=== PATIENT | male | born 1955 | race Caucasian/White ===

== ENCOUNTER 2020-01-30 10:25 | Emergency (ER) | payer MEDICARE, SELFPAY ==
--- NOTE | 2020-01-30 | CT_ITS ---
EXAMINATION: CT ABDOMEN AND PELVIS WITH CONTRAST CLINICAL INFORMATION: Left lower quadrant pain COMPARISON: None TECHNIQUE: Multidetector volumetric images were obtained from the superior aspect of the liver through the pubic symphysis following administration 85 mL of Omnipaque 350 intravenous contrast. Sagittal and coronal reformatted images were obtained on the technologist's workstation. Oral contrast: No This CT examination was performed using dose optimization techniques as appropriate, variously including the following: *Automated exposure control *Adjustment of mA and/or kV according to patient size (this includes techniques or standardized protocols for targeted exams where dose is matched to indication/reason for exam; i.e. extremities or head) *Use of iterative reconstruction technique DLP: 614 mGy-cm FINDINGS: LUNG BASES: Bibasilar scarring is present. No consolidations or effusions. LIVER, GALLBLADDER, AND BILIARY TREE: The liver is normal in size, shape, and attenuation. No focal hepatic lesion or biliary ductal dilatation is present. The gallbladder is unremarkable with no evidence of radiopaque gallstones, gallbladder wall thickening, or obvious pericholecystic inflammatory changes. PANCREAS: Unremarkable. SPLEEN: Unremarkable. Tiny splenule is seen. ADRENAL GLANDS: Unremarkable. KIDNEYS AND URETERS: The kidneys are normal in size, shape, and attenuation. Tiny bilateral renal cysts are present. No worrisome solid renal masses are seen. No hydronephrosis, hydroureter, or calculi seen. No perinephric stranding. BLADDER: Unremarkable. GASTROINTESTINAL TRACT: Diverticular changes present predominantly the left colon. No evidence of diverticulitis. The small and large bowel are unremarkable. The appendix is unremarkable. ABDOMINAL WALL: No significant hernia is appreciated. LYMPH NODES: Normal. VASCULAR: Minimal calcific atherosclerotic plaque present in the infrarenal aorta and iliac vessels PELVIC VISCERA: The bladder and seminal vesicles appear normal. OSSEOUS STRUCTURES: Unremarkable. IMPRESSION: 1. A cause for the patient's left lower quadrant pain has not been found. 2. Incidental note made of colonic diverticula without diverticulitis and tiny renal cysts.
--- NOTE | 2020-01-30 | CT_ITS ---
EXAMINATION: CT HEAD WITHOUT IV CONTRAST INDICATION: Lower extremity weakness. COMPARISON: None available. TECHNIQUE: Multidetector CT acquisitions of the head was obtained without IV contrast. This CT examination was performed using dose optimization techniques as appropriate, variously including the following: *Automated exposure control *Adjustment of mA and/or kV according to patient size (this includes techniques or standardized protocols for targeted exams where dose is matched to indication/reason for exam; i.e. extremities or head) *Use of iterative reconstruction technique FINDINGS: There is no intracranial hemorrhage, hydrocephalus, extra-axial surface collection, midline shift, or other herniation pattern. Nixon to white matter differentiation is diffusely maintained without evidence of an evolved acute territorial infarct. The basilar cisterns are preserved. No significant soft tissue abnormality. No acute osseous abnormality. The paranasal sinuses and the mastoid air cells are well aerated. IMPRESSION: No acute intracranial abnormality.
[2020-01-30 11:56] VITALS: BP 174/92; PULSE 77; RESP 20; TEMP 37; O2SAT 98; BMI 28.3
[2020-01-30 16:01] VITALS: BP 145/86; PULSE 73; RESP 16; TEMP 36.7; O2SAT 98
[2020-01-30 16:07] LABS: MANUAL DIFF FLAG NO
[2020-01-30 16:09] LABS: Basophils Percent Auto 0.4 % (0-2); Eosinophils Absolute Auto 0.2 X10*3/uL (0.0-0.4); Eosinophils Percent Auto 3.6 % (0-4); Hematocrit 45.6 % (42-52); Hemoglobin 14.8 g/dl (14.0-18.0); Imm Gran Abs Auto 0.01 X10*3/uL (0.00-0.03); Imm Gran Pct Auto 0.2 % (0.0-0.4); Lymphocytes Absolute Auto 1.2 X10*3/uL (1.2-4.9); Lymphocytes Percent Auto 23.3 % (20-40); Mean Corpuscular HGB Conc 32.5 g/dl (31.0-36.0); Mean Corpuscular Hemoglobin 27.2 pg (27.0-33.0); Mean Corpuscular Volume 83.7 fL (80-98); Mean Platelet Volume 11.3 fL (9.4-12.4); Monocytes Absolute Auto 0.4 X10*3/uL (0.1-1.2); Neutrophils Absolute Auto 3.4 X10*3/uL (2.0-8.3); Neutrophils Percent Auto 64.5 % (45-73); Platelet Count 188 X10*3/uL (160-400); Red Blood Count 5.45 X10*6/uL (4.60-5.80); Red Cell Distribution Width 13.3 % (11.0-16.0); White Blood Count 5.2 X10*3/uL (4.8-10.8)
[2020-01-30 16:17] LABS: Glucose Urine UA >=1000 MG/DL (NEG); Leukocyte Esterase Urine NEG (NEG); Nitrite Urine NEG (NEG); Urine Blood NEG (NEG); Urine Ketones 5 MG/DL (NEG); Urine Protein NEG (NEG-TRACE)
[2020-01-30 16:18] LABS: Appearance Urine CLEAR; Color Urine YELLOW
--- NOTE | 2020-01-30 16:31 | ED_ITS ---
HPI - Abdominal Pain General Chief Complaint: Abdominal Pain Stated Complaint: BACK PAIN Time Seen by Provider: 01/30/20 12:28 Source: patient Mode of arrival: ambulatory History of Present Illness HPI narrative: 64-year-old male with no sig PMHx c/o left-sided flank/low back pain radiating to LLQ and down LLE x4 days. Also reports LLE weakness with assoc tingling x early this morning around 6:30 a.m. Reports L back/abd pain is acute on chronic. Denies fever, chills, nausea /vomiting, diarrhea, dysuria/hematuria, CP/SOB MD elicited complaint: abdominal pain and flank pain Pertinent past history: none Onset (ago): day(s) (4) Pain Consistency: constant Severity: moderate Radiation: LLQ Related Data Allergies Allergy/AdvReac Type Severity Reaction Status Date / Time No Known Allergies Allergy Unverified 01/12/20 15:03 [No Known Allergies*] Review of Systems Review of Systems Yes all other systems are reviewed and are negative Constitutional: Reports as per HPI, Reports no additional constitutional complaints, Denies chills and Denies fever(s) Eyes: Reports as per HPI Reports system reviewed and no additional complaints, except as documented Cardiovascular: Reports as per HPI, Denies Abdominal Distension, Denies chest pain and Denies dyspnea Respiratory: Reports as per HPI, Reports no additional respiratory complaints, Denies cough and Denies dyspnea Gastrointestinal: Reports as per HPI, Reports abdominal pain, Denies diarrhea, Denies nausea and Denies vomiting Genitourinary: Denies hematuria, Denies dysuria and Reports flank pain Musculoskeletal: Reports numbness Reports Abnormal speech present, Reports numbness and Denies Sensory deficit (Neuro) Physical Exam Vital Signs and I&O and Narrative: Vital Signs and I&O: Vital Signs Temp 98.0 F 01/30/20 16:01 Pulse 73 01/30/20 16:01 Resp 16 01/30/20 16:01 BP 145/86 H 01/30/20 16:01 Pulse Ox 98 01/30/20 16:01 Intake & Output 01/29/20 01/30/20 01/30/20 18:59 06:59 18:59 Weight 97.522 kg Body Mass Index 28.3 Const: General: cooperative and healthy appearing Orientation/consciousness: patient oriented x3 HENMT: Head: Yes normal to inspection Eyes: General: appearance normal, both eyes and all related structures Chest: Chest palpation & inspection: normal inspection of the chest Resp: Effort & Inspection: normal respiratory effort, no stridor and not tac hypneic Auscultation: clear to auscultation bilaterally Cardio: Jugular venous distension: no JVD Rhythm: regular rhythm Heart sounds: S1 normal heart sound present and S2 normal heart sound present GI: Inspection: Yes normal to inspection Palpation (GI): Soft to palpation, Tenderness to palpation present (GI) in the LLQ, no guarding and Other GI palpation findings present : General: Yes no CVA tenderness Back/Spine/Pelvis: Other: +L lower back MSK ttp Back: no CVA tenderness Thoracic/Lumbar Spine: thoracic and lumbar spine normal to inspection Neuro: Other: No saddle anesthesia. General: patient oriented x3 Cranial nerves: Yes CN's II-XII intact bilaterally Cognition (Neuro): normal cognition Speech: Abnormal speech present Gait exam (Neuro): Normal gait present Motor exam (neuro): 5/5 motor strength present throughout and Abnormal motor strength present (LLE weaker than RLE) Sensory Exam: No Sensory deficit (Neuro) Course Course Course Narrative: CBC and UA wnl --[id number]-- ED care transferred to [facility] pending remaining labs and imaging MDM - Abdominal Pain MDM Narrative Medical decision making narrative: 64-year-old male with no sig PMHx c/o left- sided flank/low back pain radiating to LLQ and down LLE x4 days. Also reports LLE weakness with assoc tingling x early this morning around 6:30 a.mOn exam VSS, NAD, well appearing. +abd soft +LLQ ttp, +L low back MSK ttp no midline spinous ttp or red flag sx. +LLE weakness. Concern for renal stone vs diverticulitis vs infectious etiology vs MSK pain vs ?CVA (patient out of the window) Plan: Labs, UA, CT Head/CTAP, Reassess Differential Diagnosis Differential diagnosis: Likely abdominal pain, bowel perforation, constipation, diverticulitis, gastritis and renal colic Lab Data Result diagrams: 01/30/20 15:59 Labs: Lab Results 01/30/20 01/30/20 01/30/20 Range/Units 15:59 15:59 15:59 WBC 5.2 (4.8-10.8) X10*3/uL RBC 5.45 (4.60-5.80) X10*6/uL Hgb 14.8 (14.0-18.0) g/dl Hct 45.6 (42-52) % MCV 83.7 (80-98) fL MCH 27.2 (27.0-33.0) pg MCHC 32.5 (31.0-36.0) g/dl RDW 13.3 (11.0-16.0) % Plt Count 188 (160-400) X10*3/uL MPV 11.3 (9.4-12.4) fL Immature Gran % (Auto) 0.2 (0.0-0.4) % Neut % (Auto) 64.5 (45-73) % Lymph % (Auto) 23.3 (20-40) % [place] % (Auto) 8.0 (2-11) % Eos % (Auto) 3.6 (0-4) % Baso % (Auto) 0.4 (0-2) % Neut # (Auto) 3.4 (2.0-8.3) X10*3/uL Lymph # (Auto) 1.2 (1.2-4.9) X10*3/uL [place] # (Auto) 0.4 (0.1-1.2) X10*3/uL Eos # (Auto) 0.2 (0.0-0.4) X10*3/uL Baso # (Auto) 0.0 (0.0-0.2) X10*3/uL Abs Immat Gran (auto) 0.01 (0.00-0.03) X10*3/uL Absolute Nucleated RBC 0.000 (0.0-0.012) X10*3/uL Nucleated RBC % (auto) 0.0 (0.0-0.2) /100WBC Hold Blue Top SEE NOTE Urine Color YELLOW Urine Appearance CLEAR Urine pH 7.0 (5.0-8.0) Ur Specific [place] 1.020 (1.005-1.025) Urine Protein NEG (NEG-TRACE) MG/DL Urine Glucose (UA) >=1000 H (NEG) MG/DL Urine Ketones 5 (NEG) MG/DL Urine Blood NEG (NEG) Urine Nitrite NEG (NEG) Ur Leukocyte Esterase NEG (NEG) Urine RBC 0 (0) /HPF Urine WBC 0 (0-4) /HPF Ur Squamous Epith Cells TRACE /LPF Urine Bacteria NONE /LPF Discharge Plan Discharge Clinical Impression: Abdominal pain, Weakness PMFSH Past Medical History Attestation statement: The following information was validated with the patient. Medical History Arthritis Blind Diabetic acidosis, type II Hernia High cholesterol HTN (hypertension) Hx of cataract Social History Social History Alcohol intake: current Alcohol intake frequency: a few times a month Smoking Status: Never smoker Use of substances other than those prescribed or required for medical reasons: No Advance Directives: No Advance Directives Information Provided: Yes
[2020-01-30 16:32] LABS: RBC Urine 0 /HPF (0); Squamous Epithelial Cell Urine TRACE /LPF; WBC Urine 0 /HPF (0-4)
[2020-01-30 17:19] VITALS: BP 146/88; PULSE 71; RESP 16; TEMP 37.1; O2SAT 98
[2020-01-30 17:49] LABS: Alanine Aminotransferase 26 U/L (0-40); Albumin Level 4.2 g/dL (3.5-5.0); Alkaline Phosphatase 74 U/L (39-117); Aspartate Amino Transferase 18 U/L (5-37); Bilirubin Direct < 0.2 mg/dL (0.0-0.5); Bilirubin Total 0.3 mg/dL (0.0-1.0); Lipase 18 U/L (8-78); Total Protein 6.7 g/dL (6.5-8.0)
[2020-01-30 17:54] LABS: B Type Natriuretic Peptide 18 pg/mL (<100)
[2020-01-30 18:00] VITALS: BP 159/87; PULSE 68; RESP 16; TEMP 36.7; O2SAT 98
[2020-01-30 19:01] LABS: Anion Gap 14 (12-20); Blood Urea Nitrogen 10 mg/dL (9-16); Calcium 9.1 mg/dL (8.4-10.2); Carbon Dioxide 22 mmol/L (22-29); Chloride 103 mmol/L (96-108); Creatinine Clr Calc Pharmacy 111.9; Estimated Glomerular Filt Rate > 60; Glucose Random 254 mg/dL (60-115); Potassium 4.2 mmol/l (3.3-5.1); Sodium 135 mmol/L (135-145)
[2020-01-30] MEDS: iohexoL 350 MG/ML 100 ML INFUS..BTL IV (19:39)
== END 2020-01-30 20:49 | disposition home or self-care (01) ==
PROVIDERS: Physician Assistant; Physician Assistant Medical; Emergency Provider Internal Medicine; PCP Internal Medicine
DX: R10.32 Left lower quadrant pain (principal); R53.1 Weakness; I10 Essential (primary) hypertension; Z79.899 Other long term (current) drug therapy
CPT/HCPCS: 36415; 70450; 74177; 80048; 80076; 81001; 83690; 83735; 83880; 85025; 99284

== ENCOUNTER 2022-02-19 07:32 | Emergency (ER) | payer MEDICARE, SELFPAY ==
--- NOTE | ~2022-02-19 | CT_ITS ---
EXAMINATION: CT HEAD WITHOUT CONTRAST CLINICAL INFORMATION: Dizziness. COMPARISON: Head CT scan dated 01/30/2020. TECHNIQUE: Contiguous axial imaging was performed from the skull base to vertex without intravenous administration of contrast. Coronal and sagittal reformatted images were obtained. This CT examination was performed using dose optimization techniques as appropriate, variously including the following: *Automated exposure control *Adjustment of mA and/or kV according to patient size (this includes techniques or standardized protocols for targeted exams where dose is matched to indication/reason for exam; i.e. extremities or head) *Use of iterative reconstruction technique DLP: 864 mGy-cm FINDINGS: The cortical sulci are normal. The lateral ventricles are symmetrical. The third and fourth ventricles are in their normal midline position. Mildly prominent posterior fossa posterior CSF space without interval change. The basilar and prepontine cisterns are unremarkable. There is no acute intra or extracerebral abnormality. There is no mass effect or midline shift. Sections through the bony calvarium are unremarkable. The paranasal sinuses are clear. The bony orbits and orbital contents are unremarkable. Mild mid nasal septal deviation, apex of the right. CT/CT head/brain wo IV con IMPRESSION: No acute intracranial pathology.
[2022-02-19 07:42] VITALS: BP 166/87; BP 170/100; PULSE 64; PULSE 66; RESP 18; TEMP 36.4; O2SAT 96; O2SAT 98; BMI 26.9
--- NOTE | 2022-02-19 07:52 | ECG_ITS ---
Test Reason : DIZZINESS Blood Pressure : / mmHG Vent. Rate : 063 BPM Atrial Rate : 063 BPM P-R Int : 152 ms QRS Dur : 140 ms QT Int : 418 ms P-R-T Axes : -03 -51 002 degrees QTc Int : 427 ms Normal sinus rhythm Right bundle branch block Left anterior fascicular block Bifascicular block Minimal voltage criteria for LVH, may be normal variant ( R in aVL ) Abnormal ECG When compared with ECG of 26-JUN-2007 14:29, (RBBB and left anterior fascicular block) is now Present Referred By: Sivakumar Aviles Electronically Signed By:JENNIE SCHWAB MD
--- NOTE | 2022-02-19 07:54 | ED.DIZZY ---
HPI - Dizziness General Chief Complaint: Dizziness Stated Complaint: DIZZY,NAUSEA THIS AM Time Seen by Provider: 02/19/22 07:51 Source: patient History of Present Illness HPI Narrative: Patient awoke this morning at 06:30 and try to get out of bed. He was unable to get up because he was too dizzy. No prior history of similar symptoms. He describes the sensation as the room spinning. It is much worse with position change or turning his head. Positive nausea and vomiting. Denies any focal weakness numbness or paresthesias. His history of insulin-dependent diabetes EMS from blood sugar to be 274 by point of care. Related Data Previous Rx's Medication Instructions Recorded cyclobenzaprine 10 mg tablet 10 mg PO TID PRN pain #10 tabs 01/30/20 ibuprofen 800 mg tablet 800 mg PO Q8H PRN pain #14 tabs 01/30/20 meclizine 25 mg tablet 25 mg PO QID PRN dizziness #14 tabs 02/19/22 Allergies Allergy/AdvReac Type Severity Reaction Status Date / Time No Known Allergies Allergy Unverified 01/12/20 15:03 [No Known Allergies*] Review of Systems Constitutional: Comments: No recent illness. No fevers or chills Eyes: Comments: History of blindness. He is able to perceive light but no motion at baseline Cardiovascular: Comments: No chest pain Respiratory: Comments: No shortness of breath Gastrointestinal: Comments: Positive nausea and vomiting but no diarrhea or constipation or abdominal pain Musculoskeletal: Comments: No extremity complaints Integumentary/Breasts: Comments: No skin changes Neurologic: Comments: Dizziness. No focal weakness. COUNT INCLUDES THE [facility] Past Medical History Medical History Arthritis Blind Diabetic acidosis, type II Hernia High cholesterol HTN (hypertension) Hx of cataract Social History Social History Alcohol intake: never Patient Tobacco Use Status: Never used Tobacco Use of substances other than those prescribed or required for medical reasons: No Advance Directives: No Physical Exam Vital Signs: Vital Signs: Last Vital Signs Temp 97.5 F 02/19/22 07:42 Pulse 76 02/19/22 11:14 Resp 17 02/19/22 10:37 BP 126/87 02/19/22 11:14 Pulse Ox 99 02/19/22 10:37 O2 Del Method 02/19/22 10:37 BMI result Body Mass Index 26.9 HEENT: Other: TMs normal bilaterally Eyes: Other: No nystagmus. Vision baseline minimal Neck: Other: Full range of motion although very dizzy with head position changes Resp: Other: Clear and equal bilaterally Cardio: Other: Regular rate and rhythm without murmurs rubs or gallops GI: Other: Soft nontender nondistended Skin: Other: No noted rash Neuro: Other: Nonfocal neuro exam. No pronator drift on a 10 count Leg strength equal bilaterally Rapid apposition is normal Unable to do [id number] secondary to baseline blindness. [id number] normal Extrem: Other: No pedal edema or calf tenderness Course Course Course Narrative: Vertigo without obvious cerebellar symptoms. Risk factor for central cause of vertigo include insulin-dependent diabetes. Although clinical presentation is consistent with peripheral vertigo. Will treat with IV Zofran and p.o. meclizine. Workup including CT scan of the head. Will re-evaluate and assess for improvement after medication 11:15. Workup including CT scan is normal. Patient is feeling much better after meclizine. He is able ambulate without difficulty. He denies any residual nausea. Very minimal dizziness at this point. Stable for discharge home MDM - Dizziness Lab Data Result diagrams: 02/19/22 08:01 02/19/22 10:58 Labs: Lab Results 02/19/22 02/19/22 02/19/22 Range/Units 08:01 10:11 10:58 WBC 4.3 L (4.8-10.8) X10*3/uL RBC 5.27 (4.60-5.80) X10*6/uL Hgb 14.5 (14.0-18.0) g/dl Hct 43.5 (42.0-52.0) % MCV 82.5 (80.0-98.0) fL MCH 27.5 (27.0-33.0) pg MCHC 33.3 (31.0-36.0) g/dl RDW 13.5 (11.0-16.0) % Plt Count 178 (160-400) X10*3/uL MPV 10.6 (9.4-12.4) fL Immature Gran % (Auto) 0.2 (0.0-0.4) % Neut % (Auto) 63.6 (45-73) % Lymph % (Auto) 24.9 (20-40) % [place] % (Auto) 7.3 (2-11) % Eos % (Auto) 3.5 (0-4) % Baso % (Auto) 0.5 (0-2) % Lymph # (Auto) 1.1 L (1.2-4.9) X10*3/uL [place] # (Auto) 0.3 (0.1-1.2) X10*3/uL Eos # (Auto) 0.2 (0.0-0.4) X10*3/uL Baso # (Auto) 0.0 (0.0-0.2) X10*3/uL Abs Immat Gran (auto) 0.01 (0.00-0.03) X10*3/uL Absolute Neuts (auto) 2.7 (2.0-8.3) x10*3/uL Absolute Nucleated RBC 0.000 (0.0-0.012) X10*3/uL Nucleated RBC % (auto) 0.0 (0.0-0.2) /100WBC Sodium 137 (135-145) mmol/L Potassium 5.3 H (3.3-5.1) mmol/L Chloride 101 (96-108) mmol/L Carbon Dioxide 27 (22-29) mmol/L Anion Gap 14 (12-20) BUN 14 (9-16) mg/dL Creatinine 0.94 (0.5-1.4) mg/dL Estim Creat Clear Calc 87.3 Estimated GFR > 60 POC Glucose 260 H (60-115) mg/dL Random Glucose 279 H (60-115) mg/dL Calcium 9.7 D (8.4-10.2) mg/dL Total Bilirubin 0.6 (0.0-1.0) mg/dL AST 14 (5-37) U/L ALT 17 (0-40) U/L Alkaline Phosphatase 75 (39-117) U/L Total Protein 7.2 (6.5-8.0) g/dL Albumin 4.4 (3.5-5.0) g/dL Discharge Plan Discharge Clinical Impression: Benign paroxysmal positional vertigo Patient Disposition: Home, Self-Care Instructions: Vertigo (ED) Prescriptions: New meclizine 25 mg tablet 25 mg PO QID PRN (Reason: dizziness) Qty: 14 0RF No Action ibuprofen 800 mg tablet 800 mg PO Q8H PRN (Reason: pain) Qty: 14 0RF cyclobenzaprine 10 mg tablet 10 mg PO TID PRN (Reason: pain) Qty: 10 0RF
[2022-02-19 08:05] LABS: MANUAL DIFF FLAG NO
[2022-02-19 08:09] LABS: Basophils Percent Auto 0.5 % (0-2); Eosinophils Absolute Auto 0.2 X10*3/uL (0.0-0.4); Eosinophils Percent Auto 3.5 % (0-4); Hematocrit 43.5 % (42.0-52.0); Hemoglobin 14.5 g/dl (14.0-18.0); Imm Gran Abs Auto 0.01 X10*3/uL (0.00-0.03); Imm Gran Pct Auto 0.2 % (0.0-0.4); Lymphocytes Absolute Auto 1.1 X10*3/uL (1.2-4.9); Lymphocytes Percent Auto 24.9 % (20-40); Mean Corpuscular HGB Conc 33.3 g/dl (31.0-36.0); Mean Corpuscular Hemoglobin 27.5 pg (27.0-33.0); Mean Corpuscular Volume 82.5 fL (80.0-98.0); Mean Platelet Volume 10.6 fL (9.4-12.4); Monocytes Absolute Auto 0.3 X10*3/uL (0.1-1.2); Monocytes Percent Auto 7.3 % (2-11); Neutrophils Absolute Auto 2.7 x10*3/uL (2.0-8.3); Neutrophils Percent Auto 63.6 % (45-73); Platelet Count 178 X10*3/uL (160-400); Red Blood Count 5.27 X10*6/uL (4.60-5.80); Red Cell Distribution Width 13.5 % (11.0-16.0); White Blood Count 4.3 X10*3/uL (4.8-10.8)
[2022-02-19] MEDS: ondansetron HCL 4 MG/2 ML VIAL IVPUSH (08:52)
[2022-02-19] MEDS: Meclizine HCl 25 MG TABLET PO (08:52)
--- NOTE | 2022-02-19 08:59 | PC.NURSE ---
pt a/o x 44 no sob/treva noted lungs - cta. heart sounds - regular. abd soft non-tender, bs + 4 quads. skin pink warm dry speaks in full sentences. no edema noted.
[2022-02-19 10:15] LABS: Glucose, Whole Blood 260 mg/dL (60-115)
[2022-02-19 10:37] VITALS: BP 137/74; PULSE 67; RESP 17; O2SAT 99
--- NOTE | 2022-02-19 10:39 | PC.NURSE ---
pt c/o 07/04 rlq abd pain (spasm) last bm yesterday. nd aware.
--- NOTE | 2022-02-19 10:45 | PC.NURSE ---
pt amb with assist from son. amb 200ft with minimal dizziness per pt.
[2022-02-19 11:11] VITALS: BP 134/79; PULSE 67
[2022-02-19 11:13] VITALS: BP 131/86; PULSE 70
[2022-02-19 11:14] VITALS: BP 126/87; PULSE 76
[2022-02-19 11:19] LABS: Alanine Aminotransferase 17 U/L (0-40); Albumin Level 4.4 g/dL (3.5-5.0); Alkaline Phosphatase 75 U/L (39-117); Anion Gap 14 (12-20); Aspartate Amino Transferase 14 U/L (5-37); Bilirubin Total 0.6 mg/dL (0.0-1.0); Blood Urea Nitrogen 14 mg/dL (9-16); Calcium 9.7 mg/dL (8.4-10.2); Carbon Dioxide 27 mmol/L (22-29); Chloride 101 mmol/L (96-108); Creatinine Clr Calc Pharmacy 87.3; Estimated Glomerular Filt Rate > 60; Glucose Random 279 mg/dL (60-115); Potassium 5.3 mmol/L (3.3-5.1); Sodium 137 mmol/L (135-145); Total Protein 7.2 g/dL (6.5-8.0)
== END 2022-02-19 11:43 | disposition home or self-care (01) ==
PROVIDERS: Emergency Provider Emergency Medicine
DX: H81.13 Benign paroxysmal vertigo, bilateral (principal); R51.9 Headache, unspecified; Z79.899 Other long term (current) drug therapy
CPT/HCPCS: 36415; 70450; 80053; 82947; 85025; 93005; 96374; 99284; 99285; J2405